=== PATIENT | female | born 1960 | race Caucasian/White ===

== ENCOUNTER 2017-03-23 10:58 | Emergency (ER) | payer MEDICAID ==
--- NOTE | 2017-03-23 11:07 | EDPHY ---
H & P Stated Complaint: Flu-like sxs;cough since 03/13/17 Source: Patient Exam Limitations: No limitations - Personal History Current Tetanus Diphtheria and Acellular Pertussis (TDAP): Yes Tetanus Vaccine Date: < 10 years - Medical/Surgical History Hx Asthma: No Hx Chronic Respiratory Disease: No Hx Diabetes: Yes Hx Cardiac Disease: No Hx Renal Disease: No Hx Cirrhosis: No Hx Alcoholism: No Hx HIV/AIDS: No Hx Splenectomy or Spleen Trauma: No Other PMH: , HTN, "pre-diabetic", arthritis, GERD - Social History Smoking Status: Never smoked Time Seen by Provider: 03/23/17 11:06 HPI/ROS: HPI: This is 56 old female who presents with Chief Complaint: Flu-like sxs;cough since 03/13/17 Location: Chest Quality: Cough Duration: 10 days Signs and Symptoms:+ fatigue, + subjective fever but none for several days, no chills, no nausea, no vomiting, + posttussive emesis Timing: Daily intermittent episodes Severity: Moderate Context: Patient presents with complaints of fever/dry hacking cough/body aches since 03/13/2017. She reports that the fever, chills, fatigue have slowly improved the cough is worsened. She reports that she coughs so hard that she vomits. She is unable to sleep at night. She has a history of bronchitis and pneumonia. Nonsmoker. Denies any environmental allergies or occupational exposure. She reports that her anterior chest has discomfort with coughing episodes. She denies chest pain/shortness of breath/palpitations/lower extremity edema/recent long distance travel. Modifying Factors: None Comment: ROS: see HPI Constitutional: No fever, no chills, no weight loss Eyes: No blurred vision Respiratory: No shortness of breath, + cough Cardiovascular: No chest pain Gastrointestinal: No nausea, no vomiting, no diarrhea Genitourinary: No dysuria Extremities: No myalgias Neurologic: No weakness, no numbness Skin: No rashes Hematologic: No bruising, no bleeding MEDICAL/SURGICAL/SOCIAL HISTORY: Medical history: HTN, "pre-diabetic", arthritis, GERD Surgical history: Social history: Employed. CONSTITUTIONAL: Pleasant ill-appearing but nontoxic appearing adult white female, awake and alert, no obvious distress HEENT: Atraumatic and normocephalic, PERRL, EOMI. Nares patent; clear rhinorrhea. Tympanic membranes clear. Oropharynx clear, no exudate and moist pink mucosa. Airway patent. No lymphadenopathy. No meningismus. Cardiovascular: Normal S1/S2, mild tachycardia, regular rhythm, without murmur rub or gallop. PULMONARY/CHEST: Symmetrical and nontender. Clear to auscultation upper lobes. Slight crackles heard on the expiratory phase bibasilarly. Good air movement. No accessory muscle usage. ABDOMEN: Soft, nondistended, nontender, no rebound, no guarding, no peritoneal signs, no masses or organomegaly. No CVAT. EXTREMITIES: 2/2 pulses, strength 5/5, no deformities, no clubbing, no cyanosis or edema. NEUROLOGICAL: no focal neuro deficits. GCS 15. SKIN: Warm and dry, no erythema. no rash. Good capillary refill. (Marjorie Crockett) Constitutional: Initial Vital Signs Temperature (C) 36.4 C 03/23/17 10:59 Heart Rate 104 H 03/23/17 10:59 Respiratory Rate 18 03/23/17 10:59 Blood Pressure 174/106 H 03/23/17 10:59 O2 Sat (%) 95 03/23/17 10:59 O2 Delivery Mode Room Air Allergies/Adverse Reactions: codeine Allergy (Intermediate, Verified 03/23/17 11:04) Hives Sulfa (Sulfonamide Antibiotics) Allergy (Intermediate, Verified 03/23/17 11:04) Hives Home Medications: Medication Instructions Recorded AZITHROMYCIN [Z-PACK] 250 mg PO DAILY #6 tab 03/23/17 Albuterol [Proventil] 1 - 2 puffs IH Q4 PRN #1 aerosol 03/23/17 Benzonatate [Tessalon Pearles (RX)] 100 mg PO Q6 PRN #12 cap 03/23/17 Esomeprazole Magnesium [Nexium] 20 mg PO 03/23/17 Medical Decision Making ED Course/Re-evaluation: Chest x-ray, oral medications, nebulizer therapy ordered Vital signs reviewed upon arrival in show mild tachycardia but no fever/hypoxia. Given Xopenex neb as mildly tachycardic, p.o. prednisone 60 mg, PO Tessalon Perle and p.o. [place] with moderate relief of symptoms RSV positive. Influenza negative. Chest x-ray my read shows no opacity, no effusion, no pneumothorax, no widened mediastinum. Symptoms greater than 10 days; start antibiotics, antitussives, albuterol inhaler This patient was seen under the supervision of my secondary supervising physician. I evaluated care for this patient independently. (Marjorie Crockett) Differential Diagnosis: Differential diagnosis includes but is not limited to influenza, influenza bronchitis, pneumonia, sepsis. (Marjorie Crockett) Other Provider: The patient was evaluated and managed by the Physician Senior Lead Java Developer. My co- signature indicates that I have reviewed this chart and I agree with the findings and plan of care as documented. I am the secondary supervising physician. (Arabella Moon) - Data Points Medications Given: Discontinued Medications Hydrocodone Bitart/Acetaminophen ([place] 5/325) 1 tab PO EDNOW ONE Stop: 03/23/17 11:13 Last Admin: 03/23/17 11:32 Dose: 1 tab Benzonatate (Tessalon Pearles) 200 mg PO EDNOW ONE Stop: 03/23/17 11:13 Last Admin: 03/23/17 11:31 Dose: 200 mg Levalbuterol (Xopenex 1.25mg Neb) 1.25 mg IH EDNOW ONE Stop: 03/23/17 11:13 Last Admin: 03/23/17 11:48 Dose: Not Given Levalbuterol (Xopenex 0.63mg Neb) 0.63 mg IH EDNOW ONE Stop: 03/23/17 11:19 Last Admin: 03/23/17 11:31 Dose: 0.63 mg Prednisone (Prednisone) 60 mg PO EDNOW ONE Stop: 03/23/17 11:13 Last Admin: 03/23/17 11:31 Dose: 60 mg Departure - Departure Disposition: Home, Routine, Self-Care Clinical Impression: Acute bacterial bronchitis Condition: Good Instructions: Acute Bronchitis (ED) Additional Instructions: Chest x-ray today does not show any signs of pneumonia but does show signs of bronchitis. Due to the length of your symptoms, we will start an antibiotic. Please take all the antibiotic until complete. Use Tessalon Perles as needed for cough and albuterol inhaler as needed for shortness of breath or wheezing. It would benefit you to follow up with your primary care provider in the next week. Referrals: MEJIA SAUNDERS [Other] - 5-7 days, if not improved Prescriptions: Albuterol [Proventil] 1 - 2 puffs IH Q4 PRN #1 aerosol PRN Reason: Short Of Breath/Dyspnea AZITHROMYCIN [Z-PACK] 250 mg PO DAILY #6 tab Benzonatate [Tessalon Pearles (RX)] 100 mg PO Q6 PRN #12 cap PRN Reason: Cough, Moderate
[2017-03-23] MEDS ORDERED: LEVALBUTEROL 1.25 MG/3 ML DEYVIAL IH ONE (11:12)
[2017-03-23] MEDS ORDERED: HYDROCODONE/APAP 5/325 TAB PO ONE (11:12)
[2017-03-23] MEDS ORDERED: BENZONATATE 100 MG CAP PO ONE (11:12)
[2017-03-23] MEDS ORDERED: predniSONE 20 MG TAB PO ONE (11:12)
[2017-03-23] MEDS ORDERED: LEVALBUTEROL 0.63 MG/3 ML DEYVIAL IH ONE (11:18)
[2017-03-23 12:15] VITALS: TEMP 98.6
[2017-03-23 12:17] VITALS: BP 141/96; PULSE 91; RESP 17; O2SAT 95
== END 2017-03-23 12:18 | disposition home or self-care (01) ==
DX: J20.8 Acute bronchitis due to other specified organisms (principal); B96.89 Other specified bacterial agents as the cause of diseases classified elsewhere; I10 Essential (primary) hypertension
CPT/HCPCS: J7512

== ENCOUNTER 2018-05-13 09:40 | Emergency (ER) | payer MEDICAID ==
--- NOTE | 2018-05-13 09:57 | EDPHY ---
H & P Stated Complaint: cough, mucus, chills, headache Time Seen by Provider: 05/13/18 09:50 HPI/ROS: CHIEF COMPLAINT: "It Feels like I have got the flu" HISTORY OF PRESENT ILLNESS: 57-year-old female nonsmoker, up-to-date seasonal influenza vaccination, complaining of 24 hr of flu-like symptoms, intermittently productive cough, rhinorrhea, myalgias, fever. Denies: Dyspnea, chest pain, abdominal pain, nausea, vomiting, rash, muscular flaccidity or weakness. PRIMARY CARE PROVIDER:Rhett Toribio REVIEW OF SYSTEMS: 10 systems reviewed and negative with the exception of the elements mentioned in the history of present illness PAST MEDICAL & SURGICAL HISTORY: No pertinent medical or surgical history SOCIAL HISTORY:Nonsmoker. PHYSICAL EXAM (Prior to examination, patient consented to physical exam, hands were washed and my usual and customary physical exam procedures followed) 1) GENERAL: Well-developed, well-nourished, alert and oriented. Appears to be in no acute distress. 2) HEAD: Normocephalic, atraumatic 3) HEENT: Pupils equal, round, reactive to light bilaterally. Sclera anicteric. Nasopharynx, oropharynx, clear, no lesions. Moist Mucous membranes. No tonsillar enlargement or exudate. Ears bilaterally with normal tympanic membranes. No evidence of otitis media otitis externa 4) NECK: Full range of motion, no meningeal signs. 5) LUNGS: Clear auscultation bilaterally, no wheezes, no rhonchi, no retractions. 6) HEART: Regular rate and rhythm, no murmur, no heave, no gallop. 7) ABDOMEN: No guarding, no rebound, no focal tenderness, negative McBurney's, negative Mcdonald's, negative Rovsing's, negative peritoneal sign, 8) MUSCULOSKELETAL: Moving all extremities, no focal areas of tenderness, no obvious trauma. No peripheral edema or discoloration. 9) BACK: No CVA tenderness, no midline vertebral tenderness, no fluctuance, no step-off, no obvious trauma, no visual or palpable abnormality. 10) SKIN: No rash, no petechiae. 11) Psychiatric: Patient is oriented X 3, there is no agitation. DIFFERENTIAL DIAGNOSIS: In no particular order including but not limited to bronchitis, pneumonia, influenza - Personal History Current Tetanus/Diphtheria Vaccine: Unsure Current Tetanus Diphtheria and Acellular Pertussis (TDAP): Unsure Tetanus Vaccine Date: < 10 years - Medical/Surgical History Hx Asthma: No Hx Chronic Respiratory Disease: No Hx Diabetes: Yes Hx Cardiac Disease: No Hx Renal Disease: No Hx Cirrhosis: No Hx Alcoholism: No Hx HIV/AIDS: No Hx Splenectomy or Spleen Trauma: No Other PMH: , HTN, "pre-diabetic", arthritis, GERD - Social History Smoking Status: Never smoked Constitutional: Initial Vital Signs Temperature (C) 36.7 C 05/13/18 09:46 Heart Rate 86 05/13/18 09:46 Respiratory Rate 18 05/13/18 09:46 Blood Pressure 160/113 H 05/13/18 09:46 O2 Sat (%) 95 05/13/18 09:46 O2 Delivery Mode Room Air Allergies/Adverse Reactions: codeine Allergy (Intermediate, Verified 03/23/17 11:04) Hives Sulfa (Sulfonamide Antibiotics) Allergy (Intermediate, Verified 03/23/17 11:04) Hives Home Medications: Medication Instructions Recorded AZITHROMYCIN [Z-PACK] 250 mg PO DAILY #6 tab 03/23/17 Albuterol [Proventil] 1 - 2 puffs IH Q4 PRN #1 aerosol 03/23/17 Benzonatate [Tessalon Pearles (RX)] 100 mg PO Q6 PRN #12 cap 03/23/17 Esomeprazole Magnesium [Nexium] 20 mg PO 03/23/17 Albuterol [Proventil Inhaler HFA 1 - 2 puffs IH Q4PRN PRN #1 mdi 05/13/18 (*)] Azithromycin [Zithromax] 500 mg PO DAILY #1 tablet 05/13/18 Medical Decision Making ED Course/Re-evaluation: 11:33 a.m.: Re-evaluation. Influenza testing is negative. At this time I do not think that chest x-ray indicated given her clear lungs and normal saturations. Will prescribe the patient azithromycin, given her albuterol meter dose inhaler and plan on discharge. I do not think that hospitalization indicated at this time. She feels comfortable being discharged. No evidence of respiratory distress. Patient feels comfortable being discharged. All questions and concerns addressed by myself. Patient given my usual and customary discharge precautions and instructions regarding their clinical impression. Care of patient under supervision of primary Supervising physician Dr Guillen. - Data Points Laboratory Results: 05/13/18 10:15 Nasal Influenza A PCR NEGATIVE FOR FLU A (NEGATIVE) Nasal Influenza B PCR NEGATIVE FOR FLU B (NEGATIVE) Departure - Departure Disposition: Home, Routine, Self-Care Clinical Impression: Upper respiratory infection Condition: Good Instructions: Upper Respiratory Infection (ED) Additional Instructions: Return to the emergency department immediately for change in breathing habits, change in voice, change in swallowing habits, change in mental status, or any other symptoms that concern you. Referrals: Rhett Toribio PA [Primary Care Provider] - 2-3 days, call for appt. Prescriptions: Albuterol [Proventil Inhaler HFA (*)] 1 - 2 puffs IH Q4PRN PRN #1 mdi PRN Reason: Cough, Moderate Azithromycin [Zithromax] 500 mg PO DAILY #1 tablet
[2018-05-13 11:52] VITALS: BP 128/68
== END 2018-05-13 11:50 | disposition home or self-care (01) ==
DX: J06.9 Acute upper respiratory infection, unspecified (principal)